=== PATIENT | female | born 1970 | race Caucasian/White ===

== ENCOUNTER 2016-04-29 23:55 | Emergency (ER) | payer OTHER ==
--- NOTE | ~2016-04-29 | CR63 ---
[facility] A Service of [facility] & [facility] RADIOLOGY TEXT RESULTS PATIENT: BRIANA RENYOSO LOCATION: [facility] : 68 UNIT #: [id number] AGE: [address]: Betsy Victoria APRN SEX: F ORDER DR: [id number] [facility] [address] [place], [place] [address] [id number] E MR#: [id number] Acc #: [id number] NAME: BRIANA REYNOSO : 1970 SEX: F STUDY DATE/TIME: 04/30/2016 0:23 UNIT: [facility] ROOM: STUDY DESCRIPTION: CR Chest 2 View Attending Physician: Betsy Victoria A.P.R.N. Ordering Physician: Betsy Victoria A.P.R.N. Primary Care Physician: [facility] MEDICAL IMAGING REPORT This report is preliminary unless electronic signature is present EXAM Chest x-ray 04/30/2016. HISTORY 45-year-old female in the ED complaining of 1-week history of shortness of air, fever, cough and chills. TECHNIQUE AP and lateral upright chest series. FINDINGS The lungs are expanded and clear. No visible pulmonary infiltrate or pleural effusion. Heart size and pulmonary vascularity are within normal limits. No change since 09/14/2014. IMPRESSION Negative chest. No change since 09/14/2014. Dictated by... Driss Altman M.D. THIS IS AN ELECTRONICALLY VERIFIED REPORT Driss Altman M.D. at 04/30/2016 9:42 PM RGW/gz TD: 04/30/2016 12:07 JOB #: [id number] MEDICAL IMAGING REPORT Page 1 of 1 COPY
--- NOTE | ~2016-04-29 | CT2 ---
[facility] A Service of [facility] & [facility] RADIOLOGY TEXT RESULTS PATIENT: BRIANA REYNOSO LOCATION: [facility] : 68 UNIT #: [id number] AGE: [address]: Betsy Victoria APRN SEX: F ORDER DR: [id number] [facility] [address] [place], [place] [address] [id number] E MR#: [id number] Acc #: [id number] NAME: BRIANA REYNOSO : 1970 SEX: F STUDY DATE/TIME: 04/30/2016 2:22 UNIT: [facility] ROOM: STUDY DESCRIPTION: CT Abd and Pelv W Cont Attending Physician: Betsy Victoria A.P.R.N. Ordering Physician: Betsy Victoria A.P.R.N. Primary [facility] MEDICAL IMAGING REPORT This report is preliminary unless electronic signature is present EXAM CT abdomen and pelvis with contrast 04/30/2016. HISTORY 45-year-old female in the ED complaining of 1-day history of lower abdomen pain, nausea and bloating. TECHNIQUE CT examination of the abdomen and pelvis with IV contrast. GI contrast material was not ordered, limiting evaluation of the GI tract. This CT exam was performed with one or more of the following radiation dose reduction techniques: automatic exposure control, adjustment of mA and/or kV according to patient size, and iterative reconstruction. FINDINGS Abdomen: Cholecystectomy. No bile duct dilatation. The liver, pancreas and spleen are within normal limits. Small bowel and colon are normal in caliber and appearance, as imaged. Mobile cecum is currently positioned in the right upper abdomen, previously present in the right lower abdomen on 12/21/2013. The appendix is not visualized, but there is no evidence of active inflammation in the ileocecal region. Normal-caliber abdominal aorta. Both kidneys are negative with no evidence of urinary obstruction. Pelvis: The uterus, ovaries, bladder and rectum are within normal limits. Limited lung base images show no active disease in the lower chest. IMPRESSION 1. No acute abnormality within the abdomen or pelvis. 2. Cholecystectomy. 3. Mobile cecum is currently position in the right upper quadrant, but is otherwise unremarkable. [facility] A Service of [facility] & [facility] RADIOLOGY TEXT RESULTS PATIENT: BRIANA REYNOSO LOCATION: [facility] : 68 UNIT #: [id number] AGE: [address]: Betsy Victoria APRN SEX: F ORDER DR: Dictated by... Driss Altman M.D. THIS IS AN ELECTRONICALLY VERIFIED REPORT Driss Altman M.D. at 04/30/2016 9:43 PM RGW/karolina TD: 04/30/2016 12:31 JOB #: [id number] MEDICAL IMAGING REPORT Page 1 of 1 COPY
--- NOTE | ~2016-04-29 | EKG ---
PATIENT: BRIANA REYNOSO UNIT #: [id number] Ventricular Rate: 68 BPM Atrial Rate: 68 BPM P-R Interval: 170 ms QRS Duration: 80 ms Q-T Interval: 418 ms QTC Calculation(Bezet): 444 ms P Herndon: 55 degrees Calculated R Herndon: 27 degrees Calculated T Herndon: 69 degrees Diagnosis Line: Normal sinus rhythm Diagnosis Line: Septal infarct (cited on or before 30-APR-2016) Diagnosis Line: Abnormal ECG Diagnosis Line: When compared with ECG of 21-DEC-2013 23:59, Diagnosis Line: No significant change was found Diagnosis Line: Confirmed by JEANINE ESTEVEZ MD ([id number]) on Diagnosis Line: 04/30/2016 2:27:04 PM INTERPRETING MD: HERB GRACE
[~2016-04-29 23:55] MED LIST: AL-MAG HYDROX-S30 M1 PO; ALBUTEROL17 GM INH; AMITRIPTYLINE H25 MG PO; AMITRYPTYLINE PO; APIDRA (NF100 UNITS/ SUBQ; ASPIR-TRIN325 MG PO; ASPIRIN PO; ASPIRIN81 MG PO; BAYER ASPIRIN325 M1 PO; CHLORTHALIDONE25 MG PO; CIPRO PO; CLARITIN10 MG PO; CYMBALTA PO; FAMOTIDINE10 MG PO; FERRO-TIME325 MG PO; FLEXERIL10 M1 PO; FLEXERIL10 MG PO; GLUCOTROL XL PO; GLUCOTROL XL10 MG PO; HCTZ PO; HUMALOG MIX 75/10 ML SUBQ; HUMULIN R100 U/ML SUBQ; HYDROCHLOROTHIA25 MG PO; HYDROCODON-ACE1 EACH PO; HYDROXYZINE HCL25 M1 PO; IBUPROFEN PO; INVOKANA100 MG PO; LANTUS100 UNITS/ SUBQ; LASIX20 MG PO; LEVAQUIN PO; LEVAQUIN750 MG PO; LISINOPRIL PO; LISINOPRIL5 MG PO; LOPRESSOR PO; LORATADINE PO; LYRICA PO; METFORMIN HCL1000 M1 PO; METFORMIN PO; NITROGLYGERIN0.4 MG SL; NITROSTAT0.4 MG SL; PAIN RELIEF325 MG PO; PEPCID PO; PHENERGAN25 MG PO; PLAVIX PO; PRAVACHOL PO; PRAVASTATIN SOD40 MG PO; PRILOSEC PO; PROTONIX PO; PYRIDIUM PO; SIMVASTATIN40 MG PO; TOPAMAX25 MG PO; TOPROL XL 50 MG50 M1 PO; TRADJENTA5 MG PO; ZESTRIL10 MG PO; ZITHROMAX PO; ZOFRAN PO; ZOFRAN SL
[2016-04-30 00:26] LABS: URINE SOURCE CLEAN CATCH
[2016-04-30 00:33] LABS: URINE APPEARANCE CLOUDY; URINE BILIRUBIN NEG (NEG); URINE BLOOD 1+ (NEG); URINE COLOR YELLOW; URINE GLUCOSE 100 MG/DL (NEG); URINE KETONE NEG (NEG); URINE LEUKOCYTE ESTERASE 3+ (NEG); URINE NITRATE NEG (NEG); URINE PH 5.5 (5-8); URINE PROTEIN TRACE (NEG); URINE SPECIFIC GRAVITY 1.026 (1.003-1.035)
[2016-04-30 00:36] LABS: CULTURE INDICATED? YES; URINE BACTERIA AUWI 1+ (NEGATIVE); URINE SQUAMOUS EPITHELIAL CELL OCC /[HPF]; UWBCS1 AUWI 100-200 (0-5)
[2016-04-30 00:43] LABS: POC - CKMB 1.2 ng/mL (0.0-7.9); POC - TROPONIN <0.05 ng/mL (<=0.05)
[2016-04-30 00:44] LABS: INFLUENZA A NEG (NEG); INFLUENZA B NEG (NEG)
[2016-04-30 00:53] LABS: AMPHETAMINE NEG (NEG); BARBITURATES NEG (NEG); BENZODIAZEPINES NEG (NEG); COCAINE NEG (NEG); MARIJUANA POS (NEG); OPIATES NEG (NEG); TRICYCLIC ANTIDEPRESSANTS NEG (NEG); U METHADONE NEG (NEG)
[2016-04-30 01:04] LABS: BASOPHIL# 0.1 X10e3 (0-0.3); BASOPHIL% 0.4 % (0-2.5); EOSINOPHIL# 0.1 X10e3 (0-0.7); EOSINOPHIL% 0.9 % (0.0-7.0); HEMATOCRIT 37.5 % (35.0-45.0); HEMOGLOBIN 11.9 gm/dL (12.0-16.0); LYMPHOCYTE# 3.4 X10e3 (1.0-3.5); LYMPHOCYTE% 21.5 % (17.0-45.0); MEAN CELL VOLUME 82.1 FL (83-96); MEAN CORPUSCULAR HEMOGLOBIN 26.1 PG (28-34); MEAN CORPUSCULAR HGB CONC 31.8 g/dL (30-36); MEAN PLATELET VOLUME 9.7 FL (6.5-11.5); MONOCYTE% 6.6 % (3.0-12.0); NEUTROPHIL# 11.1 X10e3 (1.5-7.1); NEUTROPHIL% 70.6 % (40-75); PLATELET COUNT 298 X10e3 (140-420); RED BLOOD COUNT 4.57 X10e (3.90-5.30); RED CELL DISTRIBUTION WIDTH 18.8 % (11.0-15.5); WHITE BLOOD COUNT 15.7 X10e3 (4.0-10.5)
[2016-04-30 01:09] LABS: DIFF IND YES
[2016-04-30 01:12] LABS: PARTIAL THROMBOPLASTIN TIME 29.6 SECONDS (23.5-31.3); PROTHROMBIN TIME (PATIENT) 10.2 SECONDS (9.6-11.5)
[2016-04-30 01:15] LABS: ALBUMIN SERUM 4.1 g/dL (3.5-5.0); ALKALINE PHOSPHATASE 98 U/L (32-92); ALT (SGPT) 15 U/L (10-40); AMYLASE 21 U/L (0-46); AST (SGOT) 16 U/L (10-42); BILIRUBIN,TOTAL 0.6 mg/dL (0.2-2.0); BLOOD UREA NITROGEN 7 mg/dL (9-23); BUN/CREATININE RATIO 11.66; CALCIUM SERUM 8.7 mg/dL (8.4-10.2); CARBON DIOXIDE 25 mmol/L (22-31); CHLORIDE 103 mmol/L (100-111); CREATININE SERUM 0.6 mg/dL (0.6-1.4); GLOM FILT RATE Estimated ABOVE60 mL/min (>60); GLUCOSE FASTING 135 mg/dL (70-110); LIPASE 19 U/L (22-51); POTASSIUM 3.6 mmol/L (3.5-5.1); PROTEIN TOTAL SERUM 8.3 g/dL (6.0-8.3); SODIUM 138 mmol/L (135-145)
[2016-04-30 01:35] LABS: ANISOCYTOSIS MOD; MICROCYTOSIS SL; PLATELET ESTIMATE NORMAL (NORMAL)
== END 2016-04-30 05:25 | disposition home or self-care (01) ==
LOC: CED 23:55
PROVIDERS: Nurse Practitioner
DX: J06.9 Acute upper respiratory infection, unspecified (principal); N39.0 Urinary tract infection, site not specified; H66.92 Otitis media, unspecified, left ear; R10.9 Unspecified abdominal pain; R11.0 Nausea; E11.9 Type 2 diabetes mellitus without complications; I11.9 Hypertensive heart disease without heart failure; I51.9 Heart disease, unspecified; J45.909 Unspecified asthma, uncomplicated; K31.84 Gastroparesis; Z90.49 Acquired absence of other specified parts of digestive tract; Z79.899 Other long term (current) drug therapy; Z88.2 Allergy status to sulfonamides
CPT/HCPCS: 36415; 71020; 74177; 80053; 80307; 81003; 82150; 82553; 82947; 83690; 84484; 85025; 85610; 85730; 87086; 87651; 87804; 93005; 94640; 96361; 96365; 96375; 99284; C9113; J0696; J2270; J2405; Q9967

== ENCOUNTER → 2016-06-24 | Outpatient (CLI) | payer OTHER ==
[2016-06-24 16:26] LABS: HEMATOCRIT 35.1 % (35.0-45.0); HEMOGLOBIN 10.8 gm/dL (12.0-16.0); MEAN CELL VOLUME 83.4 FL (83-96); MEAN CORPUSCULAR HEMOGLOBIN 25.7 PG (28-34); MEAN CORPUSCULAR HGB CONC 30.9 g/dL (30-36); MEAN PLATELET VOLUME 8.7 FL (6.5-11.5); RED BLOOD COUNT 4.21 X10e (3.90-5.30); RED CELL DISTRIBUTION WIDTH 19.4 % (11.0-15.5); WHITE BLOOD COUNT 12.7 X10e3 (4.0-10.5)
[2016-06-24 16:38] LABS: ALBUMIN SERUM 3.8 g/dL (3.5-5.0); BILIRUBIN,TOTAL 0.7 mg/dL (0.2-2.0); CALCIUM SERUM 8.4 mg/dL (8.4-10.2); CREATININE SERUM 0.6 mg/dL (0.6-1.4); GLOM FILT RATE Estimated 109.3 mL/min (>60); POTASSIUM 4.4 mmol/L (3.5-5.1); PROTEIN TOTAL SERUM 7.7 g/dL (6.0-8.3)
[2016-06-28 14:58] LABS: GLIADIN IGA AB 9 Units (<20); GLIADIN IGG AB 5 Units (<20); RETICULIN IGA SCREEN W/REFLEX Negative (Negative); TISSUE TRANSGLUTAMINASE IGA AB 1 U/mL (<4)
== END | disposition home or self-care (01) ==
LOC: CLAB 15:46
PROVIDERS: Internal Medicine
DX: K76.0 Fatty (change of) liver, not elsewhere classified (principal)
CPT/HCPCS: 36415; 80053; 83516; 85027; 86255

== ENCOUNTER → 2016-09-04 | Outpatient (CLI) | payer OTHER ==
--- NOTE | ~2016-09-04 | MR104 ---
[facility] A Service of [facility] & [facility] RADIOLOGY TEXT RESULTS PATIENT: LIZBET REYNOSO LOCATION: [facility] : 68 UNIT #: [id number] AGE: [address]: Lizbet Palacios SEX: F ORDER DR: [id number] [facility] [address] [place], [place] [address] [id number] O MR#: [id number] Acc #: [id number] NAME: LIZBET REYNOSO : 1970 SEX: F STUDY DATE/TIME: 09/04/2016 6:54 UNIT: [facility] ROOM: STUDY DESCRIPTION: MR Knee Wo Contrast Rt Attending Physician: Lizbet Palacios P.A.-C. Referring Physician: Lizbet Palacios P.A.-C. Ordering Physician: Lizbet Palacios P.A.-C. Primary Care Physician: [facility] REPORT This report is preliminary unless electronic signature is present. EXAM Right knee MRI without contrast, 09/04/2016 HISTORY 46-year-old female with right knee pain since 08/29/2016. [place] a "pop" while getting up from a sitting position. No prior right knee surgery COMPARISON Right knee x-rays, 09/02/2016 TECHNIQUE Routine unenhanced multiplanar, multisequence high field MR imaging of the right knee was performed. FINDINGS There is a longitudinal horizontal oblique undersurface tear of the posterior horn and posterior body segment medial meniscus. There is degenerative fraying involving the free margin of the body segment lateral meniscus without evidence of a discrete tear. Cruciate and collateral ligaments are intact. Extensor mechanism is intact. No significant joint effusion. No popliteal cyst. 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 Patellofemoral marginal osteophytes with a prominent osteophyte along the anterolateral aspect of the lateral femoral condyle. There is subchondral marrow edema in the lateral patellar facet and lateral femoral trochlea. Vdr-vg-[id number] grade chondromalacia along the weightbearing surfaces in the lateral compartment. Moderate to high-grade chondromalacia along the weightbearing surfaces in the medial compartment. Marginal osteophytes at the medial and lateral joint lines. [facility] A Service of [facility] & [facility] RADIOLOGY TEXT RESULTS PATIENT: LIZBET REYNOSO [facility] : 68 UNIT #: [id number] AGE: [address]: Lizbet Palacios SEX: F ORDER DR: Remainder of the bone marrow signal is within expected limits. Visualized musculature is unremarkable. IMPRESSION 1. Longitudinal horizontal oblique undersurface tear posterior horn and posterior body segment medial meniscus. 2. Degenerative fraying of the free margin body segment lateral meniscus without definite tear. 3. No acute ligament injury. 4. Tricompartmental arthrosis, detailed above. This is most significant in the patellofemoral joint. There is mild subchondral marrow edema in the lateral patellar facet and lateral femoral trochlea. Dictated by... James Dos Santos M.D. THIS IS AN ELECTRONICALLY VERIFIED REPORT James Dos Santos M.D. at 09/05/2016 7:24 AM BRYAN/maricarmen TD: 09/04/2016 15:25 JOB #: [id number] [facility] REPORT Page 1 of 1 COPY
== END | disposition home or self-care (01) ==
LOC: CMRI 06:28
DX: M17.11 Unilateral primary osteoarthritis, right knee (principal); S83.241A Other tear of medial meniscus, current injury, right knee, initial encounter
CPT/HCPCS: 73721